=== PATIENT | male | born 1960 | race Caucasian/White ===

== ENCOUNTER 2017-05-20 20:22 | Emergency (ER) | payer SELFPAY ==
[~2017-05-20] VITALS: Ht 193 cm; Wt 115.0 kg
[2017-05-20 20:23] VITALS: BP 183/100; PULSE 97; RESP 18; TEMP 98.2; O2SAT 100
--- NOTE | 2017-05-20 20:33 | PD ---
Physical Exam Date Seen by Provider: May 20, 2017 Time Seen by Provider: 20:32 Narrative 56 yo male here for right rib pain. Comes and goes. Severe. Progressively worst. No injuries but has been doing a lot of cleaning at the yard. No falls. No SOB. Pain states on the ribs and does not radiate. Pain worst with movement. Vitals stable in triage. Awaiting bed placement. Data Data Last Documented VS Vital Signs Date Time Temp Pulse Resp B/P (MAP) Pulse Ox O2 Delivery O2 Flow Rate FiO2 05/20/17 20:23 98.2 97 18 183/100 (127) 100 Room Air [facility] Medical Record Reviewed: Yes Supervised Visit with YADIEL: No Chano Horton May 20, 2017 20:33
--- NOTE | 2017-05-20 21:39 | PD ---
HPI Chief Complaint: Flank/Kidney Pain Time Seen by Provider: 21:32 Travel History International Travel<30 days: No Contact w/Intl Traveler<30days: No Traveled to known affect area: No History of Present Illness HPI c/o right flank pain, onset 6 hours ago, gradual increasing in intensity, worse with movement, now at 9/10 but earlier was just a a "twinge" of pain over right lower ribs region [facility] Social History Alcohol Use: No Tobacco Use: No Allergies-Medications (Allergen,Severity, Reaction): Coded Allergies: No Known Allergies (Verified Allergy, Unknown, 05/20/17) Review of Systems Except as stated in HPI: all other systems reviewed are Neg Genitourinary: Positive: Flank Pain Musculoskeletal: Positive: Pain Physical Exam Narrative GENERAL: SKIN: Warm and dry. HEAD: Atraumatic. Normocephalic. EYES: Pupils equal and round. No scleral icterus. No injection or drainage. ENT: No nasal bleeding or discharge. Mucous membranes pink and moist. NECK: Trachea midline. No JVD. CARDIOVASCULAR: Regular rate and rhythm. RESPIRATORY: No accessory muscle use. Clear to auscultation. Breath sounds equal bilaterally. right lower chest wall reproducible chest wall tenderness to palpation. GASTROINTESTINAL: Abdomen soft, non-tender, nondistended. MUSCULOSKELETAL: Extremities without clubbing, cyanosis, or edema. No obvious deformities. NEUROLOGICAL: Awake and alert. No obvious cranial nerve deficits. Motor grossly within normal limits. Five out of 5 muscle strength in the arms and legs. Normal speech. PSYCHIATRIC: Appropriate mood and affect; insight and judgment normal. Data Data Last Documented VS Vital Signs Date Time Temp Pulse Resp B/P (MAP) Pulse Ox O2 Delivery O2 Flow Rate FiO2 05/20/17 20:23 98.2 97 18 183/100 (127) 100 Room Air Orders Orders Complete Blood Count With Diff (05/20/17 21:32) Comprehensive Metabolic Panel (05/20/17 21:32) Urinalysis - C+S If Indicated (05/20/17 21:32) Ct Abd/Pel W/O Iv Contrast (05/20/17 21:32) Ecg Monitoring (05/20/17 21:32) Iv Access Insert/Monitor (05/20/17 21:32) Ketorolac Inj (Toradol Inj) (05/20/17 21:45) Ondansetron Inj (Zofran Inj) (05/20/17 21:45) Sodium Chloride 0.9% Flush (Ns Flush) (05/20/17 21:45) Sodium Chlor 0.9% 1000 Ml Inj (Ns 1000 M (05/20/17 21:32) Hydromorphone Pf Inj (Dilaudid Pf Inj) (05/20/17 21:45) Electrocardiogram (05/20/17 21:32) Troponin I (05/20/17 21:32) Lipase (05/20/17 21:32) Labs Laboratory Tests Test 05/20/17 21:45 White Blood Count 11.2 TH/MM3 Red Blood Count 4.79 MIL/MM3 Hemoglobin 13.3 GM/DL Hematocrit 40.8 % Mean Corpuscular Volume 85.3 FL Mean Corpuscular Hemoglobin 27.7 PG Mean Corpuscular Hemoglobin Concent 32.5 % Red Cell Distribution Width 14.5 % Platelet Count 234 TH/MM3 Mean Platelet Volume 8.0 FL Neutrophils (%) (Auto) 75.0 % Lymphocytes (%) (Auto) 16.7 % Monocytes (%) (Auto) 7.0 % Eosinophils (%) (Auto) 1.0 % Basophils (%) (Auto) 0.3 % Neutrophils # (Auto) 8.4 TH/MM3 Lymphocytes # (Auto) 1.9 TH/MM3 Monocytes # (Auto) 0.8 TH/MM3 Eosinophils # (Auto) 0.1 TH/MM3 Basophils # (Auto) 0.0 TH/MM3 CBC Comment DIFF FINAL Differential Comment Blood Urea Nitrogen 20 MG/DL Creatinine 1.62 MG/DL Random Glucose 108 MG/DL Total Protein 7.8 GM/DL Albumin 4.1 GM/DL Calcium Level 8.6 MG/DL Alkaline Phosphatase 74 U/L Aspartate Amino Transf (AST/SGOT) 19 U/L Alanine Aminotransferase (ALT/SGPT) 37 U/L Total Bilirubin 0.4 MG/DL Sodium Level 139 MEQ/L Potassium Level 3.4 MEQ/L Chloride Level 105 MEQ/L Carbon Dioxide Level 24.5 MEQ/L Anion Gap 10 MEQ/L Estimat Glomerular Filtration Rate 44 ML/MIN Troponin I LESS THAN 0.02 NG/ML Lipase 147 U/L MDM Medical Decision Making Medical Screen Exam Complete: Yes Emergency Medical Condition: Yes Medical Record Reviewed: Yes Differential Diagnosis kidney stones v rib fx v ptx v chest wall contusion v pancreatitis v gallstones Narrative Course NO E/O PANCREATITIS, PER CT NO KIDNEY STONES BUT FOUND TO HAVE INCIDENTAL GALLSTONES AND DIVERTICULOSIS Diagnosis Primary Impression: CHEST WALL STRAIN Additional Impressions: INCIDENTAL GALLSTONES INCIDENTAL DIVERTICULOSIS Scripts Codeine-Acetaminophen (Codeine-Acetaminophen) 30-300 mg Tab 1 TAB PO Q4H Y for PAIN, #20 TAB 0 Refills Prov: Darren Hraris MD 05/20/17 Cyclobenzaprine (Flexeril) 10 Mg Tab 10 MG PO TID for Muscle Spasm, #30 TAB 0 Refills Prov: Darren Harris MD 05/20/17 Disposition: 01 DISCHARGE HOME Condition: Stable Darren Harris MD May 20, 2017 21:39
[2017-05-20] MEDS ORDERED: ONDANSETRON HCL 4 MG/2 ML VIAL IVP ONE (21:45)
[2017-05-20] MEDS ORDERED: KETOROLAC TROMETHAMINE 30 MG/ML (IVP) VIAL IVP ONE (21:45)
[2017-05-20] MEDS ORDERED: HYDROmorphone HCL PF 1 MG/ML VIAL IVS ONE (21:45)
[2017-05-20] MEDS ORDERED: SODIUM CHLORIDE 0.9% FLUSH 10 ML FLUSH IVF PRN (21:45)
[2017-05-20 22:12] LABS: AUTOMATED NEUTROPHIL # 8.4 TH/MM3 (1.8-7.7); BASOPHIL % 0.3 % (0.0-2.0); EOSINOPHIL # 0.1 TH/MM3 (0-0.4); HEMATOCRIT 40.8 % (39.0-51.0); HEMO FLAGS DIFF FINAL; LYMPH % 16.7 % (9.0-44.0); LYMPHOCYTE # 1.9 TH/MM3 (1.0-4.8); MEAN CELL VOLUME 85.3 FL (80.0-100.0); MEAN CORPUSCULAR HEMOGLOBIN 27.7 PG (27.0-34.0); MEAN CORPUSCULAR HGB CONC 32.5 % (32.0-36.0); PLATELET COUNT 234 TH/MM3 (150-450); RED BLOOD COUNT 4.79 MIL/MM3 (4.50-5.90); RED CELL DISTRIBUTION WIDTH 14.5 % (11.6-17.2); WHITE BLOOD COUNT 11.2 TH/MM3 (4.0-11.0)
[2017-05-20 22:42] LABS: ANION GAP 10 MEQ/L (5-15); AST (GOT) 19 U/L (15-37); BICARBONATE 24.5 MEQ/L (21.0-32.0); BLOOD UREA NITROGEN 20 MG/DL (7-18); CHLORIDE 105 MEQ/L (98-107); GLOMERULAR FILTRATION RATE 44 ML/MIN (>89); POTASSIUM 3.4 MEQ/L (3.5-5.1); SODIUM (NA) 139 MEQ/L (136-145)
[2017-05-20 22:43] LABS: ALT (GPT) 37 U/L (12-78)
[2017-05-20 22:47] LABS: ALKALINE PHOSPHATASE 74 U/L (45-117); TOTAL BILIRUBIN ADULT 0.4 MG/DL (0.2-1.0)
--- NOTE | 2017-05-20 22:49 | RADRPT ---
EXAM DATE/TIME: 05/20/2017 22:22 [facility] COMPARISON: No previous studies available for comparison. INDICATIONS : Patient complains of right flank pain. ORAL CONTRAST: No oral contrast ingested. RADIATION DOSE: 26.76 CTDIvol (mGy) MEDICAL HISTORY : None SURGICAL HISTORY : None. ENCOUNTER: Initial ACUITY: 1 day PAIN SCALE: 9/10 LOCATION: Right flank TECHNIQUE: Volumetric scanning of the abdomen and pelvis was performed. Using automated exposure control and ad justment of the mA and/or kV according to patient size, radiation dose was kept as low as reasonably achievable to obtain optimal diagnostic quality images. DICOM format image data is available electro nically for review and comparison. FINDINGS: LOWER LUNGS: There is trace right pleural fluid atelectasis versus consolidation at the right lung base. LIVER: The liver is enlarged with severe diffuse low-density with sparing around the gallbladder fossa. The re is no dilation of the biliary tree. There are multiple stones in the gallbladder. No gallbladder w all thickening is present. SPLEEN: Normal size without lesion. PANCREAS: Within normal limits. KIDNEYS: Normal in size and shape. There is no mass, stone, or hydronephrosis. There are 3 low-density lesion s in the right kidney ranging in size from 11 mm up to 6.6 cm. On density measurements characteristic of simple cysts. No ureteral stones are visualized. There is a simple appearing left renal cyst guido uring 2.8 cm. ADRENAL GLANDS: Within normal limits. VASCULAR: There is no aortic aneurysm. BOWEL/MESENTERY: The stomach, small bowel, and colon demonstrate no acute abnormality. There is no free intraperitone al air or fluid. Appendix is normal. There is sigmoid diverticulosis. ABDOMINAL WALL: There is a defect containing umbilical hernia. RETROPERITONEUM: There is no lymphadenopathy. BLADDER: No wall thickening or mass. REPRODUCTIVE: Within normal limits. INGUINAL: There is no lymphadenopathy or hernia. MUSCULOSKELETAL: There are degenerative changes of the spine. CONCLUSION: 1. No acute finding is identified to explain right flank pain. No renal stones are visualized. There is no acute abnormality identified. 2. Trace right pleural fluid with atelectasis versus consolidation at the right lung base. 3. Nonacute findings include hepatomegaly with steatosis, cholelithiasis, bilateral renal cysts, and sigmoid diverticulosis. Adi Rodriguez MD on May 20, 2017 at 22:43 Board Certified Radiologist. This report was verified electronically.
[2017-05-20] MEDS ORDERED: CYCL1TAB29 PO (22:58)
[2017-05-20] MEDS ORDERED: CODE30TA2 PO (22:58)
[2017-05-20] MEDS: SODIUM CHLOR 0.9% 1000 ML INJ 1,000 ML IV ONE ×2 (23:14→23:29)
--- NOTE | 2017-05-21 11:39 | EKG ---
Date Performed: 05/20/2017 Time Performed: 22:57:03 PTAGE: 56 years EKG: Sinus rhythm MODERATE INTRAVENTRICULAR CONDUCTION DELAY BORDERLINE ECG NO PREVIOUS TRACING DOCTOR: Primo Martel Interpretating Date/Time 05/21/2017 11:36:38
== END 2017-05-20 23:55 | disposition home or self-care (01) ==
LOC: NEPE 20:22
DX: R07.89 Other chest pain (principal); K80.20 Calculus of gallbladder without cholecystitis without obstruction; K57.90 Diverticulosis of intestine, part unspecified, without perforation or abscess without bleeding; R94.31 Abnormal electrocardiogram [ECG] [EKG]
CPT/HCPCS: 74176; 80053; 83690; 84484; 85025; 93005; 96374; 96375; 99285; J1170; J1885; J2405; J7030